=== PATIENT | female | born 1990 | race Caucasian/White ===

== ENCOUNTER → 2020-03-27 | Outpatient (REF) | payer OTHER | LOC: M LAB REF 16:02 | PROVIDERS: ATTEND Internal Medicine | DX: N92.6 Irregular menstruation, unspecified (principal) ==

== ENCOUNTER → 2020-04-03 | Outpatient (REF) | payer OTHER ==
[2020-04-03 12:27] LABS: HCG, SERUM QUALITATIVE POSITIVE (NEGATIVE)
[2020-04-03 14:13] LABS: HCG, SERUM QUANTITATIVE 2125 MIU/ML
== END ==
LOC: M LAB REF 11:10
PROVIDERS: ATTEND Internal Medicine
DX: Z33.1 Pregnant state, incidental (principal)

== ENCOUNTER → 2020-04-15 | Outpatient (REF) | payer OTHER ==
[2020-04-15 12:52] LABS: HCG, SERUM QUALITATIVE POSITIVE (NEGATIVE)
[2020-04-16 09:30] LABS: HCG, SERUM QUANTITATIVE 54975 MIU/ML
== END ==
LOC: M LAB REF 12:03
PROVIDERS: ATTEND Internal Medicine
DX: Z33.1 Pregnant state, incidental (principal)

== ENCOUNTER → 2020-09-17 | Outpatient (CLI) | payer OTHER ==
[2020-09-17 12:11] LABS: HEMATOCRIT 37.1 % (36.0-47.0); HEMOGLOBIN 11.8 g/dl (12.0-15.5); MEAN CORPUSCULAR HEMOGLOBIN 30.4 pg (27.0-33.0); MEAN CORPUSCULAR HGB CONC 31.8 g/dl (32.0-36.5); MEAN CORPUSCULAR VOLUME 95.6 fl (80.0-96.0); PLATELET COUNT, AUTOMATED 207 10^3/uL (150-450); RED BLOOD COUNT 3.88 10^6/uL (4.00-5.40)
[2020-09-20 11:43] LABS: WHITE BLOOD COUNT 9.9 10^3/uL (4.0-10.0)
== END ==
LOC: M LAB 10:15
PROVIDERS: ATTEND Obstetrics & Gynecology
DX: Z34.82 Encounter for supervision of other normal pregnancy, second trimester (principal)

== ENCOUNTER → 2020-11-04 | Outpatient (REF) | payer OTHER | LOC: M LAB REF 16:23 | PROVIDERS: ATTEND Obstetrics & Gynecology | DX: Z34.03 Encounter for supervision of normal first pregnancy, third trimester (principal) ==

== ENCOUNTER 2020-12-14 11:05 | Inpatient (IN) | payer OTHER ==
[~2020-12-14] VITALS: Ht 162.6 cm; Wt 88.2 kg
[2020-12-14] VITALS (38 sets, daily range): BP systolic 101–172; BP diastolic 51–93
[2020-12-14] MEDS ORDERED: PRENTAB9 PO (11:21)
[2020-12-14] MEDS ORDERED: NOXI1TAB PO (11:21)
[2020-12-14 13:41] LABS: BASO % 0.1 % (0.0-1.0); EOS # 0.1 10^3/uL (0.0-0.5); EOS % 0.4 % (0.0-3.0); HEMATOCRIT 41.9 % (36.0-47.0); HEMOGLOBIN 13.6 g/dl (12.0-15.5); LYMPH # 2.2 10^3/uL (1.5-5.0); LYMPH % 16.3 % (24.0-44.0); MEAN CORPUSCULAR HEMOGLOBIN 30.8 pg (27.0-33.0); MEAN CORPUSCULAR HGB CONC 32.5 g/dl (32.0-36.5); MONO # 0.7 10^3/uL (0.0-0.8); NEUTROPHILS # 10.6 10^3/uL (1.5-8.5); NEUTROPHILS % 77.8 % (36.0-66.0); PLATELET COUNT, AUTOMATED 173 10^3/uL (150-450); RED BLOOD COUNT 4.41 10^6/uL (4.00-5.40); WHITE BLOOD COUNT 13.7 10^3/uL (4.0-10.0)
[2020-12-14 14:07] LABS: ALT/SGPT 19 U/L (12-78); BILIRUBIN,TOTAL 0.2 MG/DL (0.2-1.0); CREATININE FOR GFR 0.74 MG/DL (0.55-1.30); GLOMERULAR FILTRATION RATE > 60.0 (>60); LDH LACTATE DEHYDROGENASE 253 U/L (84-246); URIC ACID 4.4 MG/DL (2.6-6.0)
[2020-12-14 14:07] LABS: CREATININE,RANDOM URINE 32.5 MG/DL; TOTAL PROTEIN,RANDOM URINE 13.7 MG/DL (0.0-12.0)
[2020-12-14] MEDS ORDERED: LR 1,000 ML IV SCH (14:26)
[2020-12-14] MEDS ORDERED: LACTATED RINGER'S 1000 ML IV STA (14:26)
[2020-12-14] MEDS ORDERED: AMPICILLIN SOD 2 GM in D5W MINI-BAG PLUS 100 ML IV STA (14:26)
[2020-12-14] MEDS ORDERED: OXYTOCIN DRIP 30 UNITS in IV 1 EA IV SCH (14:30)
[2020-12-14] MEDS: LR 1,000 ML IV SCH ×2 (14:43→22:29)
--- NOTE | 2020-12-14 15:40 | HPE ---
HISTORY AND PHYSICAL DATE OF ADMISSION: 12/14/2020 HISTORY OF PRESENT ILLNESS: Bruna is a 29-year-old female 1 para 0 with an EDC of 12/06/2020, EGA 41 and 1/7th weeks gestation, who presented to Labor and Delivery with complaint of contractions. Upon evaluation to Labor and Delivery, she was found to have some occasional contractions, however her blood pressures were elevated. Given that she was scheduled for an induction in the morning and she was found to be 3 cm dilated, the decision was made to admit her. Her record was reviewed and was essentially unremarkable. labs: Blood type is O positive, rubella immune, hepatitis negative, HIV negative, GC chlamydia negative, one hour sugar testing was within normal limits, her GBS was positive. PAST MEDICAL HISTORY: Denies. PAST SURGICAL HISTORY: Breast reduction in 2016. SOCIAL HISTORY: She is . She denies any alcohol, drugs or cigarette smoking. REVIEW OF SYSTEMS: Unremarkable. MEDICATIONS: vitamins. ALLERGIES: No known drug allergies. PHYSICAL EXAMINATION: HEENT: Grossly within normal limits. Abdomen is soft and nontender, nondistended. Extremities: No clubbing, cyanosis or edema. Vaginal exam: 3 cm, 70% effaced, fetus at -3 station, in vertex position. Tracing reviewed, Category 1 tracing with irregular contractions. Her initial labs were reviewed. Spot protein was greater than 0.4. LDH was elevated. Platelets are 177,000. Uric acid 4.5. ASSESSMENT: 1. Intrauterine at 41 and 1/7th weeks gestation. 2. Elevated blood pressure, cannot rule out preeclampsia. 3. GBS positive. PLAN: Admit to Labor and Delivery, ampicillin started for GBS prophylaxis. Pitocin augmentation will be initiated. Consider artifical rupture of membranes after 4 hours of antibiotic. Will continue to monitor. Anticipate delivery. cc: [facility]
[2020-12-14] MEDS: AMPICILLIN SOD 1 GM in D5W MINI-BAG PLUS 50 ML IV SCH ×2 (18:42→22:36)
[2020-12-14] MEDS ORDERED: FENTANYL 2MCG/ML ROPIVACAINE 0.2% IN 0.9% NACL 100ML IVBAG As Ordered ONE (19:12)
[2020-12-14] MEDS ORDERED: LACTATED RINGER'S 1000 ML IV PRN (21:00)
[2020-12-14] MEDS ORDERED: ePHEDrine SULFATE 25 MG/5 ML(5MG/ML) SYRINGE IV PRN (21:00)
[2020-12-14] MEDS ORDERED: EPIDURAL COMMENT XX SCH (21:00)
[2020-12-14] MEDS ORDERED: REFRIGERATOR IV KEYS XX PRN (21:00)
[2020-12-14] MEDS ORDERED: FENTANYL/ROPIVACAINE/NACL BAG 100 ML EPIDURAL SCH (21:00)
[2020-12-14] MEDS ORDERED: NALOXONE INJ 0.4MG/1ML VIAL (J2310 PER 1MG) IV PRN (21:00)
[2020-12-14] MEDS ORDERED: ONDANSETRON 4MG/2ML VIAL IV PRN (21:00)
[2020-12-14] MEDS ORDERED: EPIDURAL/PCA KEYS XX PRN (21:00)
[2020-12-14] MEDS ORDERED: diphenhydrAMINE 50MG/ML VIAL (J1200) IV PRN (21:00)
[2020-12-15] VITALS (12 sets, daily range): BP systolic 114–143; BP diastolic 58–86
[2020-12-15] MEDS ORDERED: METHYLERGONOVINE MALEATE 0.2 MG TAB PO PRN (02:40)
[2020-12-15] MEDS ORDERED: IBUPROFEN 800 MG TAB PO PRN (02:40)
[2020-12-15] MEDS ORDERED: ACETAMINOPHEN TAB 650MG DOSE (2X325MG) PO PRN (02:40)
[2020-12-15] MEDS ORDERED: RHOGAM 300 MCG (1500 IU) INJ (J2790) IM SCH (02:40)
[2020-12-15] MEDS ORDERED: ACETAMINOPHEN 500 MG TAB PO PRN (02:40)
[2020-12-15] MEDS ORDERED: DIBUCAINE 1% OINTMENT 30GM TOP PRN (02:40)
[2020-12-15] MEDS ORDERED: MEASLES,MUMPS,RUBELLA VACCINE INJ (MMR-II) (90707) SC SCH (02:40)
[2020-12-15] MEDS ORDERED: OXYTOCIN DRIP 30 UNITS in IV 1 EA IV SCH (02:40)
[2020-12-15] MEDS: IBUPROFEN 600MG TAB PO PRN ×2 (06:37→15:03)
[2020-12-15] MEDS: DOCUSATE SODIUM 100MG CAPSULE PO SCH ×2 (07:57→20:26)
[2020-12-15] MEDS: PRENATAL VITAMINS CHEWABLE TABLET PO SCH (07:57)
[2020-12-16] MEDS: IBUPROFEN 600MG TAB PO PRN (02:00)
[2020-12-16 05:52] VITALS: BP_SYST 125; BP_SYST 140; BP_DIAS 63; BP_DIAS 90
[2020-12-16] MEDS: DOCUSATE SODIUM 100MG CAPSULE PO SCH (08:28)
[2020-12-16] MEDS: PRENATAL VITAMINS CHEWABLE TABLET PO SCH (08:28)
--- NOTE | 2020-12-16 13:22 | DN ---
DELIVERY NOTE DATE OF DELIVERY: 12/15/2020 Bruna is a 29-year-old female, 1, para 0, who was admitted at 41-1/7 weeks gestation in early labor. She progressed to fully dilated after Pitocin augmentation and an epidural with spontaneous rupture of membranes. She then delivered a live female infant in left occiput anterior position with a compound right hand. scores 9 and 9. weight 7 pounds 7 ounces. Cord blood registry collection was done at the mother's request. The placenta was delivered spontaneously intact, 3-vessel cord. Second-degree midline perineal laceration was noted, which was repaired using 2-0 chromic. Estimated blood loss 300 mL. Both mother and baby in stable condition.
== END 2020-12-16 17:00 | disposition home or self-care (01) | DRG 807 ==
LOC: M LDO 11:05 → M LDI 14:35 → M OBS 12-15 04:45
PROVIDERS: ADMIT Obstetrics & Gynecology; ATTEND Obstetrics & Gynecology
PROC: 10E0XZZ Delivery of Products of Conception, External Approach (ICD-10-PCS; principal; 2020-12-15)
PROC: 0KQM0ZZ Repair Perineum Muscle, Open Approach (ICD-10-PCS; 2020-12-15)
DX: O48.0 Post-term pregnancy (principal); Z37.0 Single live birth; Z3A.41 41 weeks gestation of pregnancy; O99.824 Streptococcus B carrier state complicating childbirth; O32.6XX0 Maternal care for compound presentation, not applicable or unspecified; O70.1 Second degree perineal laceration during delivery